=== PATIENT | female | born 1955 | race Two or more races ===

== ENCOUNTER 2021-11-03 09:39 | Inpatient (IN) | payer BC, OTHER ==
[~2021-11-03] VITALS: Ht 144.8 cm; Wt 73.0 kg
[2021-11-03] MEDS ORDERED: DexAMETHasone SOD PHOS 10MG/1ML VIAL INJ IV ONE (11:15)
[2021-11-03] MEDS ORDERED: ACETAMINOPHEN 325 MG TAB PO ONE (11:15)
[2021-11-03 12:41] LABS: Basophils # (auto) 0.2 10 ^3/uL (0-0.2); Basophils % (auto) 3.4 % (0.0-2.0); Eosinophils # (auto) 0.1 10 ^3/uL (0-0.8); Eosinophils % (auto) 1.2 % (0.0-7.0); Hematocrit 41.5 % (36.0-46.0); Hemoglobin 13.9 g/dL (12.2-16.2); Lymphocytes # (auto) 0.5 10 ^3/uL (0.4-5.4); Mean Corpuscular Hemoglobin 31.9 pg (28.0-32.0); Mean Corpuscular Hgb Conc. 33.6 g/dL (32.0-36.0); Monocytes # (auto) 0.4 10 ^3/uL (0-1.3); Monocytes % (auto) 6.5 % (0.0-12.0); Neutrophils # (auto) 4.7 10 ^3/uL (1.6-8.6); Neutrophils % (auto) 80.9 % (37.0-80.0); Nucleated Red Blood Cells % 0.2 %; Red Blood Cells 4.37 10^6/uL (4.0-5.20); Red Cell Distribution Width 13.3 % (11.8-14.3); White Blood Cell 5.8 10^3/uL (4.4-10.8)
[2021-11-03 12:58] LABS: Potassium 3.6 mmol/L (3.5-5.1)
[2021-11-03 13:06] LABS: INR 0.95 (0.9-1.15); Partial Thromboplastin Time 30.5 sec (23.6-33.0)
[2021-11-03 13:07] LABS: Albumin 3.2 g/dL (3.4-5.0); Bilirubin, Total 0.3 mg/dL (0.2-1.0); Calcium 8.7 mg/dL (8.5-10.1); Total Protein 7.2 g/dL (6.4-8.2)
[2021-11-03 13:08] LABS: Magnesium 2.5 mg/dL (1.6-2.6)
[2021-11-03 13:17] LABS: CRP High Sensitivity 9.64 mg/dL (< 0.3)
[2021-11-03] MEDS ORDERED: ASPirin-EC 325mg tab PO ONE (14:00)
[2021-11-03] MEDS ORDERED: CLOPIDOGREL BISULFATE 75 MG TAB PO ONE (14:00)
[2021-11-03] MEDS ORDERED: DexAMETHasone SOD PHOS 10MG/1ML VIAL INJ ONE (14:09)
[2021-11-03] MEDS ORDERED: IOHEXOL 350 MG/ML 100ML IJ ONE (16:34)
[2021-11-03] MEDS: FAMOTIDINE (10MG/ML) 2ML VL IV SCH (22:00)
[2021-11-03] MEDS ORDERED: hydrALAZINE HCL 20 MG/ML VL IV PRN (22:00)
[2021-11-03] MEDS: HEPARIN SODIUM (PORCINE) 5000 UNITS/ML 1ML VIAL SC SCH (22:00)
[2021-11-03] MEDS: BUDESONIDE (INHALATION) 180 MCG IH IN SCH (22:00)
[2021-11-03] MEDS ORDERED: ACETAMINOPHEN 500 MG TAB PO PRN (22:00)
[2021-11-03] MEDS: AZITHROMYCIN 500MG/ 250ML 250 ML IV SCH (22:30)
[2021-11-03] MEDS ORDERED: MORPHINE SULFATE INJECTION 2 MG/ML SYRG IV PRN (23:45)
[2021-11-03] MEDS ORDERED: NITROGLYCERIN 0.4 MG SL TAB SL PRN (23:45)
[2021-11-04 01:35] VITALS: BP 150/86
[2021-11-04 05:00] VITALS: BP 118/76
[2021-11-04] MEDS ORDERED: LISI20TA28 PO (06:00)
[2021-11-04 07:32] LABS: Basophils # (auto) 0 10 ^3/uL (0-0.2); Basophils % (auto) 0.1 % (0.0-2.0); Eosinophils # (auto) 0 10 ^3/uL (0-0.8); Hematocrit 39.4 % (36.0-46.0); Hemoglobin 13.6 g/dL (12.2-16.2); Lymphocytes # (auto) 1.4 10 ^3/uL (0.4-5.4); Lymphocytes % (auto) 15.1 % (10.0-50.0); Mean Corpuscular Hemoglobin 32.2 pg (28.0-32.0); Mean Corpuscular Hgb Conc. 34.5 g/dL (32.0-36.0); Mean Corpuscular Volume 93.3 fL (80.0-100.0); Monocytes # (auto) 0.8 10 ^3/uL (0-1.3); Monocytes % (auto) 8.8 % (0.0-12.0); Neutrophils # (auto) 7.2 10 ^3/uL (1.6-8.6); Nucleated Red Blood Cells % 0.1 %; Red Blood Cells 4.22 10^6/uL (4.0-5.20); White Blood Cell 9.5 10^3/uL (4.4-10.8)
[2021-11-04 07:44] LABS: Albumin 2.8 g/dL (3.4-5.0); Calcium 9.1 mg/dL (8.5-10.1); Potassium 4.1 mmol/L (3.5-5.1)
[2021-11-04 07:49] LABS: BUN/Creatinine Ratio 21.4; Bilirubin, Total 0.3 mg/dL (0.2-1.0); Total Protein 6.6 g/dL (6.4-8.2)
[2021-11-04] MEDS: ASPirin 81 mg TAB PO SCH (08:39)
[2021-11-04] MEDS: ZINC SULFATE 220mg CAP or TAB PO SCH (08:39)
[2021-11-04] MEDS: HYDROcodone-ACET 5/325MG TAB PO PRN (08:39)
[2021-11-04] MEDS: FAMOTIDINE (10MG/ML) 2ML VL IV SCH ×2 (08:39→21:17)
[2021-11-04] MEDS: DexAMETHasone SOD PHOS 10MG/1ML VIAL INJ IV SCH (08:39)
[2021-11-04] MEDS: MULTIPLE VITAMIN TAB PO SCH (08:40)
[2021-11-04] MEDS: CHOLECALCIFEROL (VITD3) 2,000 UNIT CAP/TAB PO SCH (08:40)
[2021-11-04] MEDS: ASCORBIC ACID 1,000 MG TAB PO SCH (08:40)
[2021-11-04] MEDS: LISINOPRIL 20 MG TAB PO SCH (08:41)
[2021-11-04] MEDS: HEPARIN SODIUM (PORCINE) 5000 UNITS/ML 1ML VIAL SC SCH ×2 (08:42→21:24)
[2021-11-04 09:00] VITALS: BP 138/65
[2021-11-04] MEDS: BUDESONIDE (INHALATION) 180 MCG IH IN SCH ×2 (10:00→20:56)
[2021-11-04 13:00] VITALS: BP 147/83
[2021-11-04 17:00] VITALS: BP 139/79
[2021-11-04] MEDS: AZITHROMYCIN 500MG/ 250ML 250 ML IV SCH (21:17)
[2021-11-04 22:00] VITALS: BP 131/70
[2021-11-05 05:00] VITALS: BP 146/83
[2021-11-05] MEDS: BUDESONIDE (INHALATION) 180 MCG IH IN SCH ×2 (06:38→17:59)
[2021-11-05] MEDS: ALBUTEROL SULF HFA 90MCG INH 200DOSE IN PRN ×2 (06:38→17:59)
[2021-11-05 08:34] VITALS: BP 135/77
[2021-11-05] MEDS ORDERED: fentaNYL CITRATE 100 MCG/2 ML VL ONE (09:35)
[2021-11-05] MEDS ORDERED: ANGIOMAX 250 MG VIAL IV ONE (09:35)
[2021-11-05] MEDS ORDERED: MIDAZOLAM HCL 2MG/2ML 2ml VIAL (1mg/ml) ONE (09:36)
[2021-11-05] MEDS ORDERED: LIDOCAINE 2%HCL (LOCAL ANESTH.) INJ 20ML MDV ONE ×2 (09:36→13:11)
[2021-11-05] MEDS ORDERED: IODIXANOL 320MG/ML 100ML BTL IV ONE (09:44)
[2021-11-05] MEDS ORDERED: IOHEXOL 350 MG/ML 100ML IJ ONE (09:44)
[2021-11-05] MEDS: DexAMETHasone SOD PHOS 10MG/1ML VIAL INJ IV SCH (09:45)
[2021-11-05] MEDS: ASPirin 81 mg TAB PO SCH (09:45)
[2021-11-05] MEDS: FAMOTIDINE (10MG/ML) 2ML VL IV SCH ×2 (09:45→21:28)
[2021-11-05] MEDS: ASCORBIC ACID 1,000 MG TAB PO SCH (09:46)
[2021-11-05] MEDS: CHOLECALCIFEROL (VITD3) 2,000 UNIT CAP/TAB PO SCH (09:46)
[2021-11-05] MEDS: MULTIPLE VITAMIN TAB PO SCH (09:46)
[2021-11-05] MEDS: ZINC SULFATE 220mg CAP or TAB PO SCH (09:46)
[2021-11-05] MEDS: HEPARIN SODIUM (PORCINE) 5000 UNITS/ML 1ML VIAL SC SCH ×2 (09:48→21:29)
[2021-11-05] MEDS: LISINOPRIL 20 MG TAB PO SCH (09:48)
[2021-11-05 10:24] LABS: Basophils # (auto) 0 10 ^3/uL (0-0.2); Eosinophils # (auto) 0 10 ^3/uL (0-0.8); Hemoglobin 13.3 g/dL (12.2-16.2); Monocytes # (auto) 0.7 10 ^3/uL (0-1.3)
[2021-11-05 10:41] LABS: Urine Bacteria NONE SEEN /hpf (None Seen); Urine Blood Negative /uL (Negative); Urine Mucus FEW (None Seen); Urine Specific Gravity 1.024 (1.001-1.035); Urine WBC 5 /hpf (0 - 5)
[2021-11-05 11:00] VITALS: BP 133/71
[2021-11-05 11:06] LABS: Basophils % (auto) 0.2 % (0.0-2.0); Lymphocytes # (auto) 1.2 10 ^3/uL (0.4-5.4); Lymphocytes % (auto) 11.3 % (10.0-50.0); Mean Corpuscular Hemoglobin 32.2 pg (28.0-32.0); Mean Corpuscular Hgb Conc. 34.1 g/dL (32.0-36.0); Mean Corpuscular Volume 94.4 fL (80.0-100.0); Monocytes % (auto) 6.8 % (0.0-12.0); Neutrophils # (auto) 8.9 10 ^3/uL (1.6-8.6); Neutrophils % (auto) 81.7 % (37.0-80.0); Red Blood Cells 4.13 10^6/uL (4.0-5.20)
[2021-11-05 16:52] VITALS: BP 155/86
[2021-11-05] MEDS: AZITHROMYCIN 500MG/ 250ML 250 ML IV SCH (21:29)
[2021-11-05] MEDS: HYDROcodone-ACET 5/325MG TAB PO PRN (21:42)
[2021-11-05 22:00] VITALS: BP 142/77
[2021-11-06] MEDS: ALBUTEROL SULF HFA 90MCG INH 200DOSE IN PRN ×2 (06:14→20:30)
[2021-11-06] MEDS: BUDESONIDE (INHALATION) 180 MCG IH IN SCH ×2 (06:14→20:30)
[2021-11-06 07:13] LABS: Basophils # (auto) 0.1 10 ^3/uL (0-0.2); Basophils % (auto) 0.7 % (0.0-2.0); Eosinophils # (auto) 0 10 ^3/uL (0-0.8); Eosinophils % (auto) 0.1 % (0.0-7.0); Hematocrit 38.1 % (36.0-46.0); Hemoglobin 12.8 g/dL (12.2-16.2); Lymphocytes # (auto) 1.2 10 ^3/uL (0.4-5.4); Mean Corpuscular Hemoglobin 31.8 pg (28.0-32.0); Mean Corpuscular Hgb Conc. 33.6 g/dL (32.0-36.0); Mean Corpuscular Volume 94.5 fL (80.0-100.0); Monocytes # (auto) 0.7 10 ^3/uL (0-1.3); Monocytes % (auto) 8.2 % (0.0-12.0); Neutrophils # (auto) 6.1 10 ^3/uL (1.6-8.6); Nucleated Red Blood Cells % 0.2 %; Red Blood Cells 4.03 10^6/uL (4.0-5.20)
[2021-11-06 07:26] LABS: Albumin 2.6 g/dL (3.4-5.0); Calcium 8.7 mg/dL (8.5-10.1); Potassium 4.6 mmol/L (3.5-5.1)
[2021-11-06 07:31] LABS: BUN/Creatinine Ratio 32.8; Bilirubin, Total 0.5 mg/dL (0.2-1.0)
[2021-11-06] MEDS: ONDANSETRON HCL 4 MG/2 ML VIAL IV PRN ×2 (08:54→15:46)
[2021-11-06] MEDS: HYDROcodone-ACET 5/325MG TAB PO PRN ×2 (08:54→21:59)
[2021-11-06 09:00] VITALS: BP 119/72
[2021-11-06] MEDS: MULTIPLE VITAMIN TAB PO SCH (09:22)
[2021-11-06] MEDS: ZINC SULFATE 220mg CAP or TAB PO SCH (09:22)
[2021-11-06] MEDS: ASPirin 81 mg TAB PO SCH (09:22)
[2021-11-06] MEDS: ASCORBIC ACID 1,000 MG TAB PO SCH (09:22)
[2021-11-06] MEDS: DexAMETHasone SOD PHOS 10MG/1ML VIAL INJ IV SCH (09:22)
[2021-11-06] MEDS: FAMOTIDINE (10MG/ML) 2ML VL IV SCH (09:22)
[2021-11-06] MEDS: CHOLECALCIFEROL (VITD3) 2,000 UNIT CAP/TAB PO SCH (09:23)
[2021-11-06] MEDS: LISINOPRIL 20 MG TAB PO SCH (09:23)
[2021-11-06] MEDS: HEPARIN SODIUM (PORCINE) 5000 UNITS/ML 1ML VIAL SC SCH (09:25)
[2021-11-06] MEDS ORDERED: REMDESIVIR PER PHARMACY 0 ML IV SCH (11:00)
[2021-11-06] MEDS ORDERED: REMDESIVIR 200 MG in NS 210ml LOADING DOSE ADULT IV ONE (15:00)
[2021-11-06] MEDS: AZITHROMYCIN 500MG/ 250ML 250 ML IV SCH (21:51)
[2021-11-06 22:00] VITALS: BP 137/75
[2021-11-07] MEDS: HYDROcodone-ACET 5/325MG TAB PO PRN (06:47)
[2021-11-07 07:31] LABS: Basophils # (auto) 0 10 ^3/uL (0-0.2); Basophils % (auto) 0.2 % (0.0-2.0); Eosinophils # (auto) 0 10 ^3/uL (0-0.8); Eosinophils % (auto) 0.1 % (0.0-7.0); Hematocrit 38.6 % (36.0-46.0); Hemoglobin 13.3 g/dL (12.2-16.2); Lymphocytes # (auto) 1.2 10 ^3/uL (0.4-5.4); Lymphocytes % (auto) 11.8 % (10.0-50.0); Mean Corpuscular Hemoglobin 32.3 pg (28.0-32.0); Mean Corpuscular Hgb Conc. 34.4 g/dL (32.0-36.0); Mean Corpuscular Volume 93.9 fL (80.0-100.0); Monocytes # (auto) 0.7 10 ^3/uL (0-1.3); Monocytes % (auto) 7.4 % (0.0-12.0); Neutrophils % (auto) 80.5 % (37.0-80.0); Red Blood Cells 4.11 10^6/uL (4.0-5.20); Red Cell Distribution Width 13.1 % (11.8-14.3); White Blood Cell 9.9 10^3/uL (4.4-10.8)
[2021-11-07 07:57] LABS: Albumin 2.6 g/dL (3.4-5.0); BUN/Creatinine Ratio 31.3; Bilirubin, Total 0.4 mg/dL (0.2-1.0); Calcium 9.1 mg/dL (8.5-10.1); Total Protein 6.6 g/dL (6.4-8.2)
[2021-11-07 09:00] VITALS: BP 132/82
[2021-11-07] MEDS: DexAMETHasone SOD PHOS 10MG/1ML VIAL INJ IV SCH (09:41)
[2021-11-07] MEDS: ZINC SULFATE 220mg CAP or TAB PO SCH (09:42)
[2021-11-07] MEDS: LISINOPRIL 20 MG TAB PO SCH (09:42)
[2021-11-07] MEDS: ASPirin 81 mg TAB PO SCH (09:42)
[2021-11-07] MEDS: MULTIPLE VITAMIN TAB PO SCH (09:42)
[2021-11-07] MEDS: CHOLECALCIFEROL (VITD3) 2,000 UNIT CAP/TAB PO SCH (09:42)
[2021-11-07] MEDS: ASCORBIC ACID 1,000 MG TAB PO SCH (09:42)
[2021-11-07] MEDS: ENOXAPARIN SOD 80 MG/0.8ML SYRINGE SC SCH (09:43)
[2021-11-07] MEDS ORDERED: IOHEXOL 350 MG/ML 100ML IJ ONE (09:46)
[2021-11-07] MEDS: ONDANSETRON HCL 4 MG/2 ML VIAL IV PRN (09:54)
[2021-11-07] MEDS: BUDESONIDE (INHALATION) 180 MCG IH IN SCH ×2 (10:36→21:18)
[2021-11-07] MEDS: ALBUTEROL SULF HFA 90MCG INH 200DOSE IN PRN ×2 (10:36→21:18)
[2021-11-07 13:22] VITALS: BP 141/87
[2021-11-07] MEDS: REMDESIVIR 100mg 100 MG in SODIUM CHL 0.9% 230 ML IV SCH (15:00)
[2021-11-07 17:30] VITALS: BP 137/83
[2021-11-07] MEDS: AZITHROMYCIN 500MG/ 250ML 250 ML IV SCH (21:21)
[2021-11-07 22:00] VITALS: BP 123/74
[2021-11-08 05:00] VITALS: BP 128/76
[2021-11-08 07:30] LABS: Potassium 3.6 mmol/L (3.5-5.1)
[2021-11-08 07:34] LABS: Albumin 2.4 g/dL (3.4-5.0); BUN/Creatinine Ratio 30.3; Calcium 9.1 mg/dL (8.5-10.1)
[2021-11-08 07:36] LABS: Bilirubin, Total 0.5 mg/dL (0.2-1.0); Total Protein 6.3 g/dL (6.4-8.2)
[2021-11-08 08:03] LABS: Hematocrit 39.1 % (36.0-46.0); Hemoglobin 13.1 g/dL (12.2-16.2); Mean Corpuscular Hemoglobin 31.5 pg (28.0-32.0); Mean Corpuscular Hgb Conc. 33.5 g/dL (32.0-36.0); Mean Corpuscular Volume 93.8 fL (80.0-100.0); Red Blood Cells 4.17 10^6/uL (4.0-5.20); Red Cell Distribution Width 13.1 % (11.8-14.3); White Blood Cell 11.2 10^3/uL (4.4-10.8)
[2021-11-08 08:07] LABS: Basophils % (manual) 0 (0.0-2.0); Blast Cells 0; Eosinophils % (manual) 0 (0-7); Metamyelocytes % 0; Myelocytes % 0; Promyelocytes % 0; Reactive Lymphocytes 0
[2021-11-08] MEDS: DexAMETHasone SOD PHOS 10MG/1ML VIAL INJ IV SCH (08:12)
[2021-11-08] MEDS: CHOLECALCIFEROL (VITD3) 2,000 UNIT CAP/TAB PO SCH (08:12)
[2021-11-08] MEDS: ASPirin 81 mg TAB PO SCH (08:12)
[2021-11-08] MEDS: ENOXAPARIN SOD 80 MG/0.8ML SYRINGE SC SCH (08:12)
[2021-11-08] MEDS: MULTIPLE VITAMIN TAB PO SCH (08:13)
[2021-11-08] MEDS: ZINC SULFATE 220mg CAP or TAB PO SCH (08:13)
[2021-11-08] MEDS: LISINOPRIL 20 MG TAB PO SCH (08:13)
[2021-11-08] MEDS: HYDROcodone-ACET 5/325MG TAB PO PRN (08:13)
[2021-11-08] MEDS: ASCORBIC ACID 1,000 MG TAB PO SCH (08:14)
[2021-11-08 09:00] VITALS: BP 138/68
[2021-11-08] MEDS: BUDESONIDE (INHALATION) 180 MCG IH IN SCH ×2 (10:00→19:55)
[2021-11-08 11:41] LABS: Band Neutrophils % (manual) 2; Lymphocytes % (manual) 15 (10.0-50.0); Monocytes % (manual) 8 (0-12)
[2021-11-08 12:48] VITALS: BP 123/64
[2021-11-08] MEDS: ALBUTEROL SULF HFA 90MCG INH 200DOSE IN PRN (14:22)
[2021-11-08] MEDS: REMDESIVIR 100mg 100 MG in SODIUM CHL 0.9% 230 ML IV SCH (15:10)
[2021-11-08 17:52] VITALS: BP 119/63
[2021-11-08 22:00] VITALS: BP 108/68
[2021-11-09] MEDS: HYDROcodone-ACET 5/325MG TAB PO PRN ×4 (00:26→21:30)
[2021-11-09 05:00] VITALS: BP 109/63
[2021-11-09 05:18] VITALS: BP 109/63
[2021-11-09 08:33] LABS: Basophils # (auto) 0 10 ^3/uL (0-0.2); Basophils % (auto) 0.2 % (0.0-2.0); Eosinophils # (auto) 0.1 10 ^3/uL (0-0.8); Monocytes # (auto) 0.8 10 ^3/uL (0-1.3); Red Blood Cells 4.02 10^6/uL (4.0-5.20)
[2021-11-09 08:35] LABS: Eosinophils % (auto) 1.1 % (0.0-7.0); Hematocrit 39.5 % (36.0-46.0); Hemoglobin 13.8 g/dL (12.2-16.2); Lymphocytes % (auto) 9.4 % (10.0-50.0); Mean Corpuscular Hemoglobin 34.2 pg (28.0-32.0); Mean Corpuscular Hgb Conc. 34.9 g/dL (32.0-36.0); Mean Corpuscular Volume 98.1 fL (80.0-100.0); Monocytes % (auto) 7.3 % (0.0-12.0); Neutrophils # (auto) 8.7 10 ^3/uL (1.6-8.6); White Blood Cell 10.6 10^3/uL (4.4-10.8)
[2021-11-09 08:36] LABS: Potassium 3.9 mmol/L (3.5-5.1)
[2021-11-09] MEDS: ENOXAPARIN SOD 80 MG/0.8ML SYRINGE SC SCH (08:44)
[2021-11-09] MEDS: MULTIPLE VITAMIN TAB PO SCH (08:44)
[2021-11-09] MEDS: DexAMETHasone SOD PHOS 10MG/1ML VIAL INJ IV SCH (08:44)
[2021-11-09] MEDS: ASPirin 81 mg TAB PO SCH (08:44)
[2021-11-09] MEDS: ZINC SULFATE 220mg CAP or TAB PO SCH (08:45)
[2021-11-09] MEDS: LISINOPRIL 20 MG TAB PO SCH (08:45)
[2021-11-09] MEDS: CHOLECALCIFEROL (VITD3) 2,000 UNIT CAP/TAB PO SCH (08:46)
[2021-11-09] MEDS: ASCORBIC ACID 1,000 MG TAB PO SCH (08:46)
[2021-11-09] MEDS: ALBUTEROL SULF HFA 90MCG INH 200DOSE IN PRN ×2 (08:47→20:25)
[2021-11-09] MEDS: BUDESONIDE (INHALATION) 180 MCG IH IN SCH ×2 (08:47→20:25)
[2021-11-09 08:48] LABS: Albumin 2.3 g/dL (3.4-5.0); BUN/Creatinine Ratio 31.5; Bilirubin, Total 0.6 mg/dL (0.2-1.0); Calcium 8.7 mg/dL (8.5-10.1)
[2021-11-09 09:00] VITALS: BP 123/67
[2021-11-09 13:00] VITALS: BP 121/73
[2021-11-09] MEDS: REMDESIVIR 100mg 100 MG in SODIUM CHL 0.9% 230 ML IV SCH (15:41)
[2021-11-09 17:00] VITALS: BP 110/58
[2021-11-09 22:00] VITALS: BP 99/54
[2021-11-10 05:00] VITALS: BP 111/59
[2021-11-10] MEDS: ALBUTEROL SULF HFA 90MCG INH 200DOSE IN PRN ×2 (06:13→19:21)
[2021-11-10] MEDS: BUDESONIDE (INHALATION) 180 MCG IH IN SCH ×2 (06:13→19:21)
[2021-11-10] MEDS: HYDROcodone-ACET 5/325MG TAB PO PRN ×2 (06:34→23:14)
[2021-11-10 06:58] LABS: Hemoglobin 13.2 g/dL (12.2-16.2); Red Cell Distribution Width 12.8 % (11.8-14.3)
[2021-11-10 07:02] LABS: Hematocrit 40.2 % (36.0-46.0); Mean Corpuscular Hemoglobin 30.9 pg (28.0-32.0); Mean Corpuscular Hgb Conc. 32.8 g/dL (32.0-36.0); Mean Corpuscular Volume 94.3 fL (80.0-100.0); Red Blood Cells 4.26 10^6/uL (4.0-5.20); White Blood Cell 11.6 10^3/uL (4.4-10.8)
[2021-11-10 07:06] LABS: Calcium 9.6 mg/dL (8.5-10.1); Potassium 4.2 mmol/L (3.5-5.1)
[2021-11-10 07:08] LABS: Albumin 2.2 g/dL (3.4-5.0); BUN/Creatinine Ratio 25.6
[2021-11-10 07:10] LABS: Bilirubin, Total 0.6 mg/dL (0.2-1.0); Total Protein 6.2 g/dL (6.4-8.2)
[2021-11-10 07:13] LABS: Band Neutrophils % (manual) 0; Basophils % (manual) 0 (0.0-2.0); Blast Cells 0; Metamyelocytes % 0; Myelocytes % 0; Promyelocytes % 0; Reactive Lymphocytes 0
[2021-11-10 08:05] VITALS: BP 119/73
[2021-11-10] MEDS: CHOLECALCIFEROL (VITD3) 2,000 UNIT CAP/TAB PO SCH (09:11)
[2021-11-10] MEDS: ENOXAPARIN SOD 80 MG/0.8ML SYRINGE SC SCH (09:11)
[2021-11-10] MEDS: DexAMETHasone SOD PHOS 10MG/1ML VIAL INJ IV SCH (09:11)
[2021-11-10] MEDS: ZINC SULFATE 220mg CAP or TAB PO SCH (09:11)
[2021-11-10] MEDS: ASPirin 81 mg TAB PO SCH (09:12)
[2021-11-10] MEDS: MULTIPLE VITAMIN TAB PO SCH (09:12)
[2021-11-10] MEDS: ASCORBIC ACID 1,000 MG TAB PO SCH (09:12)
[2021-11-10] MEDS: LISINOPRIL 20 MG TAB PO SCH (09:12)
[2021-11-10] MEDS ORDERED: cefTRIAXone 1GM/50ML D5W 50 ML IV ONE (09:45)
[2021-11-10] MEDS: AZITHROMYCIN 500MG/ 250ML 250 ML IV SCH (10:09)
[2021-11-10 11:09] LABS: Eosinophils % (manual) 2 (0-7); Lymphocytes % (manual) 4 (10.0-50.0); Monocytes % (manual) 7 (0-12)
[2021-11-10 12:00] VITALS: BP 121/78
[2021-11-10] MEDS: REMDESIVIR 100mg 100 MG in SODIUM CHL 0.9% 230 ML IV SCH (15:53)
[2021-11-10 16:00] VITALS: BP 115/68
[2021-11-10 20:00] VITALS: BP 110/61
[2021-11-10 22:00] VITALS: BP 110/61
[2021-11-11 05:00] VITALS: BP 106/57
[2021-11-11] MEDS: ALBUTEROL SULF HFA 90MCG INH 200DOSE IN PRN ×2 (05:45→19:22)
[2021-11-11] MEDS: BUDESONIDE (INHALATION) 180 MCG IH IN SCH ×2 (05:45→19:22)
[2021-11-11 06:06] LABS: Hematocrit 38.1 % (36.0-46.0); Hemoglobin 12.7 g/dL (12.2-16.2); Mean Corpuscular Hgb Conc. 33.3 g/dL (32.0-36.0); Red Cell Distribution Width 13.3 % (11.8-14.3)
[2021-11-11 06:07] LABS: Mean Corpuscular Hemoglobin 31.1 pg (28.0-32.0); Mean Corpuscular Volume 93.3 fL (80.0-100.0); Red Blood Cells 4.09 10^6/uL (4.0-5.20); White Blood Cell 9.1 10^3/uL (4.4-10.8)
[2021-11-11 06:12] LABS: Basophils % (manual) 0 (0.0-2.0); Blast Cells 0; Promyelocytes % 0; Reactive Lymphocytes 0
[2021-11-11 06:23] LABS: Potassium 4.2 mmol/L (3.5-5.1)
[2021-11-11 06:32] LABS: Band Neutrophils % (manual) 3; Eosinophils % (manual) 2 (0-7); Lymphocytes % (manual) 11 (10.0-50.0); Metamyelocytes % 1; Monocytes % (manual) 6 (0-12); Myelocytes % 1
[2021-11-11 06:37] LABS: Albumin 2.1 g/dL (3.4-5.0); BUN/Creatinine Ratio 39.1; Bilirubin, Total 0.4 mg/dL (0.2-1.0); Calcium 9.2 mg/dL (8.5-10.1); Total Protein 5.8 g/dL (6.4-8.2)
[2021-11-11 08:10] VITALS: BP 118/69
[2021-11-11 09:14] VITALS: BP 118/69
[2021-11-11] MEDS: DexAMETHasone SOD PHOS 10MG/1ML VIAL INJ IV SCH (10:25)
[2021-11-11] MEDS: cefTRIAXone 1GM/50ML D5W 50 ML IV SCH (10:25)
[2021-11-11] MEDS: ENOXAPARIN SOD 80 MG/0.8ML SYRINGE SC SCH (10:25)
[2021-11-11] MEDS: ASPirin 81 mg TAB PO SCH (10:26)
[2021-11-11] MEDS: ZINC SULFATE 220mg CAP or TAB PO SCH (10:26)
[2021-11-11] MEDS: ASCORBIC ACID 1,000 MG TAB PO SCH (10:26)
[2021-11-11] MEDS: CHOLECALCIFEROL (VITD3) 2,000 UNIT CAP/TAB PO SCH (10:26)
[2021-11-11] MEDS: MULTIPLE VITAMIN TAB PO SCH (10:26)
[2021-11-11] MEDS: LISINOPRIL 20 MG TAB PO SCH (10:31)
[2021-11-11] MEDS: HYDROcodone-ACET 5/325MG TAB PO PRN ×2 (10:32→23:34)
[2021-11-11] MEDS: AZITHROMYCIN 500MG/ 250ML 250 ML IV SCH (12:01)
[2021-11-11 13:00] VITALS: BP 100/61
[2021-11-11 17:00] VITALS: BP 112/62
[2021-11-11 22:00] VITALS: BP 116/79
[2021-11-12 05:00] VITALS: BP 107/65
[2021-11-12 06:24] LABS: Basophils # (auto) 0 10 ^3/uL (0-0.2); Eosinophils # (auto) 0.1 10 ^3/uL (0-0.8); Lymphocytes # (auto) 1.1 10 ^3/uL (0.4-5.4); Monocytes # (auto) 0.7 10 ^3/uL (0-1.3); Monocytes % (auto) 8.7 % (0.0-12.0)
[2021-11-12 06:27] LABS: Basophils % (auto) 0.2 % (0.0-2.0); Hematocrit 36.8 % (36.0-46.0); Hemoglobin 12.7 g/dL (12.2-16.2); Lymphocytes % (auto) 13.5 % (10.0-50.0); Mean Corpuscular Hemoglobin 32.9 pg (28.0-32.0); Mean Corpuscular Hgb Conc. 34.4 g/dL (32.0-36.0); Mean Corpuscular Volume 95.7 fL (80.0-100.0); Neutrophils # (auto) 6.4 10 ^3/uL (1.6-8.6); Neutrophils % (auto) 76.6 % (37.0-80.0); Nucleated Red Blood Cells % 0.1 %; Red Blood Cells 3.85 10^6/uL (4.0-5.20); Red Cell Distribution Width 13.4 % (11.8-14.3); White Blood Cell 8.4 10^3/uL (4.4-10.8)
[2021-11-12 06:43] LABS: Albumin 2.2 g/dL (3.4-5.0); Potassium 4.4 mmol/L (3.5-5.1)
[2021-11-12 06:47] LABS: BUN/Creatinine Ratio 35.9; Bilirubin, Total 0.3 mg/dL (0.2-1.0); Total Protein 5.8 g/dL (6.4-8.2)
[2021-11-12] MEDS: BUDESONIDE (INHALATION) 180 MCG IH IN SCH ×2 (08:17→19:56)
[2021-11-12] MEDS: ALBUTEROL SULF HFA 90MCG INH 200DOSE IN PRN ×2 (08:17→19:56)
[2021-11-12] MEDS: cefTRIAXone 1GM/50ML D5W 50 ML IV SCH (09:35)
[2021-11-12] MEDS: ASPirin 81 mg TAB PO SCH (09:36)
[2021-11-12] MEDS: DexAMETHasone SOD PHOS 10MG/1ML VIAL INJ IV SCH (09:36)
[2021-11-12] MEDS: CHOLECALCIFEROL (VITD3) 2,000 UNIT CAP/TAB PO SCH (09:37)
[2021-11-12] MEDS: ASCORBIC ACID 1,000 MG TAB PO SCH (09:37)
[2021-11-12] MEDS: ZINC SULFATE 220mg CAP or TAB PO SCH (09:37)
[2021-11-12] MEDS: MULTIPLE VITAMIN TAB PO SCH (09:37)
[2021-11-12] MEDS: LISINOPRIL 20 MG TAB PO SCH (09:38)
[2021-11-12] MEDS: ENOXAPARIN SOD 80 MG/0.8ML SYRINGE SC SCH (09:39)
[2021-11-12] MEDS: AZITHROMYCIN 500MG/ 250ML 250 ML IV SCH (09:39)
[2021-11-12] MEDS: HYDROcodone-ACET 5/325MG TAB PO PRN ×3 (09:40→21:53)
[2021-11-12 13:00] VITALS: BP 105/65
[2021-11-12 17:00] VITALS: BP 115/66
[2021-11-12 22:00] VITALS: BP 117/54
[2021-11-13 05:00] VITALS: BP 117/64
[2021-11-13 06:07] LABS: Hematocrit 35.9 % (36.0-46.0); Hemoglobin 12.8 g/dL (12.2-16.2); Mean Corpuscular Hemoglobin 33.7 pg (28.0-32.0); Mean Corpuscular Hgb Conc. 35.7 g/dL (32.0-36.0); Mean Corpuscular Volume 94.5 fL (80.0-100.0); Red Cell Distribution Width 13.1 % (11.8-14.3); White Blood Cell 8.6 10^3/uL (4.4-10.8)
[2021-11-13 06:31] LABS: Albumin 2.2 g/dL (3.4-5.0); Calcium 9.2 mg/dL (8.5-10.1); Potassium 4.4 mmol/L (3.5-5.1)
[2021-11-13 06:35] LABS: BUN/Creatinine Ratio 24.4; Bilirubin, Total 0.5 mg/dL (0.2-1.0); Total Protein 5.8 g/dL (6.4-8.2)
[2021-11-13 06:40] LABS: Basophils % (manual) 0 (0.0-2.0); Blast Cells 0; Eosinophils % (manual) 0 (0-7); Promyelocytes % 0; Reactive Lymphocytes 0
[2021-11-13] MEDS: ALBUTEROL SULF HFA 90MCG INH 200DOSE IN PRN ×2 (07:22→21:50)
[2021-11-13] MEDS: BUDESONIDE (INHALATION) 180 MCG IH IN SCH ×2 (07:22→21:49)
[2021-11-13 07:55] LABS: Band Neutrophils % (manual) 1; Lymphocytes % (manual) 18 (10.0-50.0); Metamyelocytes % 1; Monocytes % (manual) 7 (0-12); Myelocytes % 1
[2021-11-13] MEDS: cefTRIAXone 1GM/50ML D5W 50 ML IV SCH (08:48)
[2021-11-13] MEDS: ZINC SULFATE 220mg CAP or TAB PO SCH (08:49)
[2021-11-13] MEDS: DexAMETHasone SOD PHOS 10MG/1ML VIAL INJ IV SCH (08:49)
[2021-11-13] MEDS: ASPirin 81 mg TAB PO SCH (08:49)
[2021-11-13] MEDS: CHOLECALCIFEROL (VITD3) 2,000 UNIT CAP/TAB PO SCH (08:50)
[2021-11-13] MEDS: ASCORBIC ACID 1,000 MG TAB PO SCH (08:50)
[2021-11-13] MEDS: MULTIPLE VITAMIN TAB PO SCH (08:50)
[2021-11-13] MEDS: HYDROcodone-ACET 5/325MG TAB PO PRN (08:51)
[2021-11-13] MEDS: ENOXAPARIN SOD 80 MG/0.8ML SYRINGE SC SCH (08:51)
[2021-11-13] MEDS: LISINOPRIL 20 MG TAB PO SCH (08:51)
[2021-11-13 09:28] VITALS: BP 112/56
[2021-11-13] MEDS: AZITHROMYCIN 500MG/ 250ML 250 ML IV SCH (10:00)
[2021-11-13 12:55] VITALS: BP 109/63
[2021-11-13 16:26] VITALS: BP 104/57
[2021-11-13] MEDS: DOCUSATE SOD 100 MG CAP PO PRN (20:32)
[2021-11-13 22:00] VITALS: BP 96/54
[2021-11-14 05:00] VITALS: BP 109/61
[2021-11-14 06:04] LABS: Red Cell Distribution Width 13.3 % (11.8-14.3); White Blood Cell 10.1 10^3/uL (4.4-10.8)
[2021-11-14 06:06] LABS: Hematocrit 37.3 % (36.0-46.0); Hemoglobin 12.8 g/dL (12.2-16.2); Mean Corpuscular Hemoglobin 32.6 pg (28.0-32.0); Mean Corpuscular Hgb Conc. 34.4 g/dL (32.0-36.0); Mean Corpuscular Volume 94.7 fL (80.0-100.0); Red Blood Cells 3.93 10^6/uL (4.0-5.20)
[2021-11-14 06:18] LABS: Potassium 3.9 mmol/L (3.5-5.1)
[2021-11-14 06:27] LABS: Blast Cells 0; Myelocytes % 0; Promyelocytes % 0; Reactive Lymphocytes 0
[2021-11-14 06:30] LABS: Albumin 2.4 g/dL (3.4-5.0); BUN/Creatinine Ratio 29.7; Bilirubin, Total 0.8 mg/dL (0.2-1.0); Calcium 9.4 mg/dL (8.5-10.1); Total Protein 6.2 g/dL (6.4-8.2)
[2021-11-14] MEDS: ALBUTEROL SULF HFA 90MCG INH 200DOSE IN PRN ×2 (07:08→22:38)
[2021-11-14] MEDS: BUDESONIDE (INHALATION) 180 MCG IH IN SCH ×2 (07:08→22:06)
[2021-11-14] MEDS: DOCUSATE SOD 100 MG CAP PO PRN (07:29)
[2021-11-14 08:39] VITALS: BP 104/62
[2021-11-14 08:46] LABS: Band Neutrophils % (manual) 1
[2021-11-14] MEDS: ASPirin 81 mg TAB PO SCH (08:51)
[2021-11-14] MEDS: cefTRIAXone 1GM/50ML D5W 50 ML IV SCH (08:51)
[2021-11-14] MEDS: DexAMETHasone SOD PHOS 10MG/1ML VIAL INJ IV SCH (08:51)
[2021-11-14] MEDS: ASCORBIC ACID 1,000 MG TAB PO SCH (08:52)
[2021-11-14] MEDS: ZINC SULFATE 220mg CAP or TAB PO SCH (08:52)
[2021-11-14] MEDS: MULTIPLE VITAMIN TAB PO SCH (08:52)
[2021-11-14] MEDS: CHOLECALCIFEROL (VITD3) 2,000 UNIT CAP/TAB PO SCH (08:53)
[2021-11-14] MEDS: LISINOPRIL 20 MG TAB PO SCH (08:53)
[2021-11-14] MEDS: ENOXAPARIN SOD 80 MG/0.8ML SYRINGE SC SCH (08:54)
[2021-11-14 08:57] LABS: Lymphocytes % (manual) 20 (10.0-50.0)
[2021-11-14 08:58] LABS: Monocytes % (manual) 8 (0-12)
[2021-11-14 08:59] LABS: Metamyelocytes % 1
[2021-11-14] MEDS: AZITHROMYCIN 500MG/ 250ML 250 ML IV SCH (11:02)
[2021-11-14 13:00] VITALS: BP 119/71
[2021-11-14] MEDS ORDERED: FLEET ENEMA(ADULT) 135 ML PR ONE (13:00)
[2021-11-14 16:33] VITALS: BP 105/59
[2021-11-14 21:37] VITALS: BP 105/53
[2021-11-15 05:00] VITALS: BP 119/74
[2021-11-15 06:51] LABS: Basophils # (auto) 0.1 10 ^3/uL (0-0.2); Monocytes # (auto) 0.9 10 ^3/uL (0-1.3)
[2021-11-15 06:54] LABS: Eosinophils # (auto) 0.1 10 ^3/uL (0-0.8); Eosinophils % (auto) 0.8 % (0.0-7.0); Hematocrit 38.7 % (36.0-46.0); Hemoglobin 13.1 g/dL (12.2-16.2); Lymphocytes # (auto) 1.7 10 ^3/uL (0.4-5.4); Lymphocytes % (auto) 16.8 % (10.0-50.0); Mean Corpuscular Hemoglobin 33.2 pg (28.0-32.0); Mean Corpuscular Hgb Conc. 33.9 g/dL (32.0-36.0); Mean Corpuscular Volume 97.8 fL (80.0-100.0); Monocytes % (auto) 9.3 % (0.0-12.0); Neutrophils # (auto) 7.2 10 ^3/uL (1.6-8.6); Neutrophils % (auto) 72.1 % (37.0-80.0); Red Blood Cells 3.96 10^6/uL (4.0-5.20); Red Cell Distribution Width 13.5 % (11.8-14.3)
[2021-11-15 07:30] LABS: Potassium 4.7 mmol/L (3.5-5.1)
[2021-11-15 07:38] LABS: Albumin 2.2 g/dL (3.4-5.0); BUN/Creatinine Ratio 30.1; Calcium 9.5 mg/dL (8.5-10.1)
[2021-11-15 07:42] LABS: Bilirubin, Total 0.7 mg/dL (0.2-1.0); Total Protein 6.2 g/dL (6.4-8.2)
[2021-11-15 08:34] VITALS: BP 112/58
[2021-11-15] MEDS: BUDESONIDE (INHALATION) 180 MCG IH IN SCH (08:38)
[2021-11-15] MEDS: ALBUTEROL SULF HFA 90MCG INH 200DOSE IN PRN (08:38)
[2021-11-15] MEDS: ASPirin 81 mg TAB PO SCH (09:49)
[2021-11-15] MEDS: cefTRIAXone 1GM/50ML D5W 50 ML IV SCH (09:49)
[2021-11-15] MEDS: DexAMETHasone SOD PHOS 10MG/1ML VIAL INJ IV SCH (09:49)
[2021-11-15] MEDS: ZINC SULFATE 220mg CAP or TAB PO SCH (09:50)
[2021-11-15] MEDS: ASCORBIC ACID 1,000 MG TAB PO SCH (09:50)
[2021-11-15] MEDS: MULTIPLE VITAMIN TAB PO SCH (09:50)
[2021-11-15] MEDS: CHOLECALCIFEROL (VITD3) 2,000 UNIT CAP/TAB PO SCH (09:51)
[2021-11-15] MEDS: LISINOPRIL 20 MG TAB PO SCH (09:51)
[2021-11-15] MEDS: ENOXAPARIN SOD 80 MG/0.8ML SYRINGE SC SCH (09:52)
[2021-11-15] MEDS ORDERED: POLYETHYLENE GLYCOL 17 GM PWDR PO SCH (10:00)
[2021-11-15] MEDS: AZITHROMYCIN 500MG/ 250ML 250 ML IV SCH (10:31)
[2021-11-15 13:00] VITALS: BP 117/60
[2021-11-15] MEDS ORDERED: ASPI1CHW15 PO (16:56)
[2021-11-15] MEDS ORDERED: LISI20TA28 PO (16:56)
[2021-11-15] MEDS ORDERED: ALBUAER3 IN (16:56)
== END 2021-11-15 19:08 | disposition home or self-care (01) | DRG 177 ==
LOC: ER 09:39 → TELE-WESTW 23:41 → TELE-EAST 11-05 11:32
PROVIDERS: ADMIT Nurse Practitioner Family; ATTEND Internal Medicine
PROC: 4A023N8 Measurement of Cardiac Sampling and Pressure, Bilateral, Percutaneous Approach (ICD-10-PCS; 2021-11-05)
PROC: B215YZZ Fluoroscopy of Left Heart using Other Contrast (ICD-10-PCS; 2021-11-05)
PROC: 4A033BC Measurement of Arterial Pressure, Coronary, Percutaneous Approach (ICD-10-PCS; 2021-11-05)
PROC: B211YZZ Fluoroscopy of Multiple Coronary Arteries using Other Contrast (ICD-10-PCS; 2021-11-05)
PROC: XW033E5 Introduction of Remdesivir Anti-infective into Peripheral Vein, Percutaneous Approach, New Technology Group 5 (ICD-10-PCS; principal; 2021-11-06)
DX: U07.1 COVID-19 (principal); J12.82 Pneumonia due to coronavirus disease 2019; J96.01 Acute respiratory failure with hypoxia; J98.11 Atelectasis; I44.7 Left bundle-branch block, unspecified; E78.5 Hyperlipidemia, unspecified; I25.10 Atherosclerotic heart disease of native coronary artery without angina pectoris; K59.00 Constipation, unspecified; I10 Essential (primary) hypertension
CPT/HCPCS: 36415; 71045; 71275; 75635; 80053; 81001; 82728; 83036; 83615; 83735; 83880; 84484; 85007; 85025; 85027; 85379; 85610; 85730; 86141; 87426; 93005; 93306; 94640; 96365; 96375; 99152; 99153; C1751; G0378; J0696; J1100; J2250; J2405; J3490; Q9967

== ENCOUNTER 2021-11-30 11:59 | Emergency (ER) | payer OTHER ==
[~2021-11-30] VITALS: Ht 144.8 cm; Wt 72.6 kg
[~2021-11-30 11:59] MED LIST: ALBUAER3 IN; ASPI1CHW15 PO; LISI20TA28 PO
[2021-11-30 12:51] LABS: Basophils # (auto) 0.3 10 ^3/uL (0-0.2); Basophils % (auto) 3.2 % (0.0-2.0); Eosinophils # (auto) 0.1 10 ^3/uL (0-0.8); Hematocrit 39.3 % (36.0-46.0); Hemoglobin 13.3 g/dL (12.2-16.2); Lymphocytes # (auto) 2.6 10 ^3/uL (0.4-5.4); Lymphocytes % (auto) 23.9 % (10.0-50.0); Mean Corpuscular Hemoglobin 32.9 pg (28.0-32.0); Monocytes # (auto) 0.6 10 ^3/uL (0-1.3); Monocytes % (auto) 5.4 % (0.0-12.0); Neutrophils # (auto) 7.2 10 ^3/uL (1.6-8.6); Neutrophils % (auto) 66.5 % (37.0-80.0); Nucleated Red Blood Cells % 0.2 %; Red Blood Cells 4.05 10^6/uL (4.0-5.20); Red Cell Distribution Width 14.8 % (11.8-14.3); White Blood Cell 10.8 10^3/uL (4.4-10.8)
[2021-11-30 13:07] LABS: Albumin 3.3 g/dL (3.4-5.0); Potassium 4.9 mmol/L (3.5-5.1)
[2021-11-30 13:12] LABS: BUN/Creatinine Ratio 24.7; Bilirubin, Total 0.4 mg/dL (0.2-1.0); Total Protein 7.8 g/dL (6.4-8.2)
[2021-11-30] MEDS ORDERED: IOHEXOL 350 MG/ML 100ML IJ ONE (14:16)
[2021-11-30 18:58] VITALS: BP 116/67
== END 2021-11-30 19:08 | disposition short-term general hospital (02) ==
LOC: ER 11:59
DX: J96.00 Acute respiratory failure, unspecified whether with hypoxia or hypercapnia (principal); I27.20 Pulmonary hypertension, unspecified; I10 Essential (primary) hypertension; E78.5 Hyperlipidemia, unspecified; Z20.822 Contact with and (suspected) exposure to COVID-19
CPT/HCPCS: 36415; 71046; 71275; 80053; 82728; 84484; 85025; 85379; 86141; 87426; 93005; 99285; Q9967

== ENCOUNTER 2022-02-27 12:03 | Emergency (ER) | payer OTHER ==
[~2022-02-27] VITALS: Ht 154.9 cm; Wt 75.3 kg
[2022-02-27 12:14] VITALS: BP 124/70
[2022-02-27] MEDS ORDERED: HYDROcodone-ACET 5/325MG TAB PO ONE (13:30)
[2022-02-27] MEDS ORDERED: HYDR-4902 PO (13:42)
== END 2022-02-27 15:03 | disposition home or self-care (01) ==
LOC: ER 12:03
DX: M25.552 Pain in left hip (principal); I10 Essential (primary) hypertension; E78.5 Hyperlipidemia, unspecified
CPT/HCPCS: 73502